=== PATIENT | female | born 1985 | race African-American/Black ===

== ENCOUNTER 2023-05-03 12:46 | Emergency (ER) | payer MEDICAID ==
[~2023-05-03] VITALS: Ht 172.7 cm; Wt 120.0 kg
[2023-05-03 12:50] VITALS: O2SAT 96
[2023-05-03] MEDS: KETOROLAC 60MG/2ML VIAL IM STA (14:23)
[2023-05-03] MEDS ORDERED: IBUP-2028 MT (16:01)
[2023-05-03 19:32] VITALS: BP 133/102; PULSE 98; RESP 17; TEMP 98.2
== END 2023-05-03 19:29 | disposition home or self-care (01) ==
LOC: ER 13:01
DX: S83.91XA Sprain of unspecified site of right knee, initial encounter (principal); I10 Essential (primary) hypertension; F12.90 Cannabis use, unspecified, uncomplicated; X58.XXXA Exposure to other specified factors, initial encounter; Y93.89 Activity, other specified; Y92.89 Other specified places as the place of occurrence of the external cause; Y99.8 Other external cause status
CPT/HCPCS: 81025; 73562; 29505; 96372; 99283; J1885; Z7610; L1830